=== PATIENT | male | born 1970 | race African-American/Black ===

== ENCOUNTER 2016-11-07 11:48 | Emergency (ER) | payer BC ==
[~2016-11-07] VITALS: Ht 180.3 cm; Wt 80.3 kg
[~2016-11-07 11:48] MED LIST: CYCLOBENZAPRINE10 MG ORAL; IBUPROFEN600 MG ORAL; NKM; NORCO 5-325 TA1 EACH ORAL
[2016-11-07 12:16] VITALS: BP 129/75
[2016-11-07 14:00] VITALS: BP 123/78
[2016-11-07] MEDS ORDERED: IBUPROFEN600 MG ORAL (14:12)
[2016-11-07 14:40] VITALS: BP 123/78
--- NOTE | 2016-11-07 20:27 | Emergency Room Report ---
History of Present Illness General Chief Complaint: Laceration Source: Patient Present Illness HPI The patient is a 46-year-old male presenting with a laceration to the left index finger which occurred yesterday. The patient states that he was using an [employer] knife for a project which slipped. The patient noticed immediate bleeding. Patient cleaned the wound with peroxide and water. The pain is now described as a 5/10 dull ache it does not radiate from the finger. The patient denies prior injury to this area and denies any numbness or tingling. Patient states last tetanus shot was within 10 years. The patient denies any other symptoms Allergies: Coded Allergies: No Known Allergies (Unverified , 01/08/14) Patient History Past Medical History: see triage record Pertinent Family History: none Reviewed Nursing Documentation: PMH: Agreed, PSxH: Agreed Nursing Documentation-PMH Past Medical History: No Stated History Hx Cardiac Problems: No Hx Cancer: No Hx Gastrointestinal Problems: No Hx Neurological Problems: No Review of Systems All Other Systems: negative except mentioned in HPI Physical Exam Vital Signs Date Time Temp Pulse Resp B/P Pulse Ox O2 Delivery O2 Flow Rate FiO2 11/07/16 12:16 98.2 72 16 129/75 100 Room Air Sp02 EP Interpretation: reviewed, normal General Appearance: no apparent distress, alert, GCS 15, non-toxic Head: normocephalic, atraumatic Eyes: bilateral eye PERRL, bilateral eye normal inspection ENT: hearing grossly normal, normal pharynx, no angioedema, normal voice Musculoskeletal: back normal, gait/station normal, normal range of motion, tender - TTP over distal L index finger Neurologic: alert, oriented x3, responsive, motor strength/tone normal, sensory intact, normal gait, speech normal Psychiatric: judgement/insight normal, memory normal, mood/affect normal, no suicidal/homicidal ideation Skin: laceration - 3cm linear laceration to distal L lateral index finger Lymphatic: no adenopathy Procedures Laceration/Wound Repair Laceration/Wound Repair : Consent: Verbal Wound Location: upper extremity Wound's Depth, Shape: superficial, linear Wound Length (cm): 3 Wound Explored: clean Irrigated w/ Saline (ccs): 200 Betadine Prep?: Yes Anesthesia: 1% Lidocaine Volume Anesthetic (ccs): 4 Wound Debrided: minimal Wound Repaired With: sutures Suture Size/Type: 4:0, proline Number of Sutures: 3 Layer Closure?: No Sterile Dressing Applied?: Yes Splint Applied?: No Sling Applied?: No Patient Tolerated: Well Complications: None Medical Decision Making PA Attestation Dr. Christiansen is my supervising physician. Patient management was discussed with my supervising physician Diagnostic Impression: Primary Impression: Laceration of finger ER Course The patient is a 46-year-old male presenting with a laceration to the left index finger which occurred yesterday. Ddx considered include but not limited to fracture, tendon/ligament injury, avulsion, nerve damage PE: vitals WNL. NAD 3cm linear laceration to distal L lateral index finger. No bleeding. SILT. Full AROM The wound was irrigated with normal saline and cleaned with betadine. A 27g needle was used to administer 4 mL of lidocaine w.o epi for local anaesthesia. 3 sutures were placed with 4-0 Prolene. The wound was well approximated and the patient tolerated the procedure well. The wound was then cleaned and bacitracin was applied. The patient is discharged home with prescription for motrin ER precautions are given. Patient will follow up with PMD Last Vital Signs Date Time Temp Pulse Resp B/P Pulse Ox O2 Delivery O2 Flow Rate FiO2 11/07/16 14:40 98.3 66 16 123/78 99 Room Air Status: improved Disposition: HOME, SELF-CARE Condition: Improved Scripts Ibuprofen* (MOTRIN*) 600 Mg Tablet 600 MG ORAL Q8H Y for For Pain, #30 TAB 0 Refills Prov: WIN MARQUEZ 11/07/16 Patient Instructions: Laceration Care, Adult Additional Instructions: I discussed my findings with the patient. All questions and concerns have been answered. Treatment and medication compliance have been addressed. I advised the patient that they need to follow up with PMD in 7 days for wound check and suture removal. If you are unable to see PMD, return to the ED in 7 days. Return to ED if pain remains or worsens, you notice discharge from the wound, the wound continues to bleed, the suture/s fall out, you notice a fever or chills, or for any reason. Patient is advised to keep the wound clean and apply an antibacterial ointment. Patient verbalized understanding of discharge instructions. WIN MARQUEZ Nov 07, 2016 20:27
== END 2016-11-07 14:40 | disposition home or self-care (01) ==
LOC: EMR 12:20
DX: S61.211A Laceration without foreign body of left index finger without damage to nail, initial encounter (principal); W26.0XXA Contact with knife, initial encounter; Y92.9 Unspecified place or not applicable

== ENCOUNTER 2018-09-21 13:20 | Emergency (ER) | payer BC ==
[~2018-09-21] VITALS: Ht 180.3 cm; Wt 78.5 kg
--- NOTE | 2018-09-21 13:30 | NUR ---
ED Nurse Note: patient walked into ED c/o of lower medial back pain that has been going on for a week now, patient states that he fell off a ladder, patient states that he fell off at about 3 fet, denies any headache of LOC
[2018-09-21 13:38] VITALS: BP 137/89
--- NOTE | 2018-09-21 15:01 | Emergency Room Report ---
History of Present Illness General Chief Complaint: Pain Present Illness HPI 47-year-old male presents to the emergency department complaining of localized upper back pain between the left scapula and the spine which is 8 out of 10 in severity 1 week. Patient reports that he has episodes of similar pain almost monthly status post scapular injury 12 years ago. Patient reports that he is tried medications and physical therapy with no relief. Patient presents today because his symptoms have returned he denies trauma or fall he denies numbness or tingling in the left arm he denies shortness of breath, chest pain, palpitations, dizziness, syncope, cough or recent URI. He denies dyspnea. Patient reports pain is exacerbated upon lifting things. Patient denies relieving factors. Patient denies fevers, chills, recent spinal procedures, rash, bruises or erythema/warmth. Denies midline neck or back pain. Allergies: Coded Allergies: No Known Allergies (Unverified , 01/08/14) Patient History Past Medical History: see triage record Past Surgical History: none Pertinent Family History: none Immunizations: UTD Reviewed Nursing Documentation: PMH: Agreed; PSxH: Agreed Nursing Documentation-PMH Past Medical History: No Stated History Hx Cardiac Problems: No Hx Cancer: No Hx Gastrointestinal Problems: No Hx Neurological Problems: No Review of Systems All Other Systems: negative except mentioned in HPI Physical Exam Vital Signs Date Time Temp Pulse Resp B/P (MAP) Pulse Ox O2 Delivery O2 Flow Rate FiO2 09/21/18 13:25 98.4 79 16 137/89 97 Room Air Sp02 EP Interpretation: reviewed, normal General Appearance: no apparent distress, alert, GCS 15, non-toxic Head: normocephalic, atraumatic Eyes: bilateral eye normal inspection, bilateral eye PERRL ENT: hearing grossly normal, normal voice Neck: full range of motion Respiratory: chest non-tender, lungs clear, normal breath sounds, no respiratory distress, no wheezing, speaking full sentences Cardiovascular #1: regular rate, rhythm Genitourinary: normal inspection, no CVA tenderness Musculoskeletal: back normal, gait/station normal, normal range of motion, tender - TTP to the left rhomboid area upon superficial palpation, lungs CTA bilaterally, no evidence of infection or rashes. FROM of the left arm. NVI Neurologic: alert, oriented x3, responsive, motor strength/tone normal, sensory intact, speech normal, grossly normal Psychiatric: judgement/insight normal Skin: normal color, no rash, warm/dry, well hydrated Lymphatic: no adenopathy Medical Decision Making PA Attestation Dr. Marshall is my supervising Physician whom patient management has been discussed with. Diagnostic Impression: Primary Impression: Rhomboid myalgia ER Course 47-year-old male presents to the emergency department complaining of localized upper back pain between the left scapula and the spine which is 8 out of 10 in severity 1 week. Patient reports that he has episodes of similar pain almost monthly status post scapular injury 12 years ago. Patient reports that he is tried medications and physical therapy with no relief. Patient presents today because his symptoms have returned he denies trauma or fall he denies numbness or tingling in the left arm he denies shortness of breath, chest pain, palpitations, dizziness, syncope, cough or recent URI. He denies dyspnea. Patient reports pain is exacerbated upon lifting things. Patient denies relieving factors. Patient denies fevers, chills, recent spinal procedures, rash, bruises or erythema/warmth. Denies midline neck or back pain. Ddx considered but are not limited to Fracture, dislocation, contusion, Sprain/ Strain/Spasm, shingles, Aortic dissection, pericarditis just to name a few Vital signs: are WNL, pt. is afebrile H&PE are most consistent with musculoskeletal injury will perform imaging to r/ o fractures/dislocations. --- cardiac or aortic etiology of low suspicion as this is been in chronic ongoing issue for several years and patient reports that symptoms today are consistent with symptoms that he is previously experienced. VS are stable , pt. is NAD and non-toxic in appearance, not having CP or SOB. ORDERS: - X-ray Left Scapula - negative for fx, Dislocation, or significant soft tissue injury, per preliminary read in ED, and signed by RAYMUNDO Romo, my supervising physician has reviewed, and agrees with my interpretation. ED INTERVENTIONS: - Soma PO -Lidoderm TP -I do not identify an emergent condition at this time. With current presentation , pt. is stable for close outpatient follow up and conservative treatment. D/ w pt. to return promptly to ED with worsening or new symptoms.- Pt. verbalizes' understanding and agreement with proposed treatment plan. DISCHARGE: At this time pt. is stable for d/c to home. Will provide printed patient care instructions, and any necessary prescriptions. Care plan and follow up instructions have been discussed with the patient prior to discharge. Other X-Ray Diagnostic Results Other X-Ray Diagnostic Results : X-Ray ordered: left Scapula # of Views/Limited Vs Complete: 2 View Indication: Pain EP Interpretation: Yes PA Xray: Interpretation reviewed, by supervising MD, and agrees with findings. Interpretation: no dislocation, no soft tissue swelling, no fractures Impression: No acute disease Electronically Signed by: Maribell Romo PA-C Last Vital Signs Date Time Temp Pulse Resp B/P (MAP) Pulse Ox O2 Delivery O2 Flow Rate FiO2 09/21/18 13:38 98.4 73 16 137/89 97 Room Air Disposition: HOME, SELF-CARE Condition: Stable Scripts Naproxen* (NAPROXEN*) 500 Mg Tablet.dr 500 MG ORAL TWICE A DAY, #14 TAB Prov: Maribell Romo 09/21/18 Lidocaine (Lidoderm) 1 Each Adh..patch 1 PATCH TOPIC DAILY for 30 Days, #30 PATCH 0 Refills Patch(es) may remain in place for up to 12 hours in any 24-hour period. Prov: Maribell Romo 09/21/18 Methocarbamol* (ROBAXIN*) 500 Mg Tablet 500 MG PO TID, #42 TAB 0 Refills Prov: Maribell Romo 09/21/18 Referrals: NON PHYSICIAN (PCP) Patient Instructions: Muscle Cramps and Spasms, [id number] Additional Instructions: Take medications as directed. Follow up with a Primary Care Provider in 3-5 days, even if your symptoms have resolved. *NEUROLOGIST Referral recommended* --Please review list of primary care clinics, if you do not already have a primary care provider Return sooner to ED if new symptoms occur, or current symptoms become worse. Do not drink alcohol, drive, or operate heavy machinery while taking Robaxin ( Muscle Relaxers) as this may cause drowsiness. - Please note that this Emergency Department Report was dictated using [employer] trimmer technology software, occasionally this can lead to erroneous entry secondary to interpretation by the dictation equipment. Maribell Romo Sep 21, 2018 15:01
[2018-09-21] MEDS ORDERED: ROBAXIN500 MG PO (15:04)
[2018-09-21] MEDS ORDERED: LIDODERM700 M1 TOPIC (15:04)
[2018-09-21] MEDS ORDERED: NAPROXEN500 M1 ORAL (15:04)
[2018-09-21 15:14] VITALS: BP 128/87
--- NOTE | 2018-09-21 15:14 | NUR ---
ED Nurse Note: Pt cleared by Health Care provider for discharge. ACI given and explained to pt and verbalized understanding of teachings. All medical devices such as ID band removed. Pt left with all personal belongings. Pt is AAO x4 and ambulatory.
--- NOTE | 2018-09-21 16:34 | Diagnostic Imaging Report ---
Indication: Chronic pain in the left scapular region Technique: 2 views of the left scapula Comparison: none Findings: No acute fractures. No dislocations. Impression: Negative
== END 2018-09-21 15:14 | disposition home or self-care (01) ==
LOC: EMR 14:04
DX: M79.18 Myalgia, other site (principal)
CPT/HCPCS: 99283